=== PATIENT | female | born 1950 | race Caucasian/White ===

== ENCOUNTER 2018-07-01 07:53 | Outpatient (CLI) | payer OTHER | END 2018-07-01 07:55 | disposition home or self-care (01) | LOC: SONOGRAMA 07:53 | DX: E04.1 Nontoxic single thyroid nodule (principal) ==

== ENCOUNTER 2020-07-04 07:25 | Outpatient (CLI) | payer OTHER | END 2020-07-04 07:38 | disposition home or self-care (01) | LOC: TOM 07:25 | PROVIDERS: ATTEND Internal Medicine Gastroenterology | DX: R19.4 Change in bowel habit (principal); K56.609 Unspecified intestinal obstruction, unspecified as to partial versus complete obstruction ==